=== PATIENT | male | born 1975 | race Caucasian/White ===

== ENCOUNTER 2024-08-10 14:53 | Outpatient (RCR) | payer BC, SELFPAY | END 2024-08-10 23:59 | disposition home or self-care (01) | LOC: RST 14:53 | PROVIDERS: ATTENDING PHYSICIAN Psychiatry & Neurology Neurology; FAMILY PHYSICIAN Family Medicine | DX: C71.1 Malignant neoplasm of frontal lobe (principal); R41.841 Cognitive communication deficit; R41.840 Attention and concentration deficit; R47.02 Dysphasia | CPT/HCPCS: 96125 ==

== ENCOUNTER 2024-09-08 14:58 | Outpatient (RCR) | payer BC, SELFPAY | END 2024-09-08 23:59 | disposition home or self-care (01) | LOC: RST 14:58 | PROVIDERS: ATTENDING PHYSICIAN Psychiatry & Neurology Neurology; FAMILY PHYSICIAN Family Medicine | DX: C71.1 Malignant neoplasm of frontal lobe (principal); R41.841 Cognitive communication deficit; R41.840 Attention and concentration deficit; R47.02 Dysphasia | CPT/HCPCS: 97129; 97130 ==

== ENCOUNTER 2024-10-09 14:46 | Outpatient (RCR) | payer BC, SELFPAY | END 2024-10-09 23:59 | disposition home or self-care (01) | LOC: RST 14:46 | PROVIDERS: ATTENDING PHYSICIAN Psychiatry & Neurology Neurology; FAMILY PHYSICIAN Family Medicine | DX: C71.1 Malignant neoplasm of frontal lobe (principal); R41.841 Cognitive communication deficit; R41.840 Attention and concentration deficit; R47.02 Dysphasia | CPT/HCPCS: 97129; 97130 ==

== ENCOUNTER 2024-10-31 15:18 | Outpatient (RCR) | payer BC, SELFPAY | END 2024-10-31 23:59 | disposition home or self-care (01) | LOC: RST 15:18 | PROVIDERS: ATTENDING PHYSICIAN Psychiatry & Neurology Neurology; FAMILY PHYSICIAN Family Medicine | DX: C71.1 Malignant neoplasm of frontal lobe (principal); R41.841 Cognitive communication deficit; R41.840 Attention and concentration deficit; R47.02 Dysphasia | CPT/HCPCS: 97129; 97130 ==

== ENCOUNTER 2024-12-12 15:14 | Outpatient (RCR) | payer BC, SELFPAY | END 2024-12-12 23:59 | disposition home or self-care (01) | LOC: RST 15:14 | PROVIDERS: ATTENDING PHYSICIAN Psychiatry & Neurology Neurology; FAMILY PHYSICIAN Family Medicine | DX: C71.1 Malignant neoplasm of frontal lobe (principal); R41.841 Cognitive communication deficit; R41.840 Attention and concentration deficit; R47.02 Dysphasia | CPT/HCPCS: 97129; 97130 ==

== ENCOUNTER 2025-01-09 15:25 | Outpatient (RCR) | payer BC, SELFPAY | END 2025-01-09 23:59 | disposition home or self-care (01) | LOC: RST 15:25 | PROVIDERS: ATTENDING PHYSICIAN Psychiatry & Neurology Neurology; FAMILY PHYSICIAN Family Medicine | DX: C71.1 Malignant neoplasm of frontal lobe (principal); R41.841 Cognitive communication deficit; R41.840 Attention and concentration deficit; R47.02 Dysphasia | CPT/HCPCS: 97129; 97130 ==

== ENCOUNTER 2025-02-06 15:06 | Outpatient (RCR) | payer BC, SELFPAY | END 2025-02-07 07:27 | disposition home or self-care (01) | LOC: RST 15:06 | PROVIDERS: ATTENDING PHYSICIAN Psychiatry & Neurology Neurology; FAMILY PHYSICIAN Family Medicine | DX: C71.1 Malignant neoplasm of frontal lobe (principal); R41.841 Cognitive communication deficit; R41.840 Attention and concentration deficit; R47.02 Dysphasia | CPT/HCPCS: 97129; 97130 ==